=== PATIENT | female | born 1965 | race Caucasian/White ===

== ENCOUNTER 2016-05-05 19:52 | Emergency (ER) | payer BC ==
[~2016-05-05] VITALS: Ht 165.1 cm; Wt 103.9 kg
[~2016-05-05 19:52] MED LIST: LORTAB 5/500 501 TAB PO
[2016-05-05] MEDS ORDERED: PROTONIX 40MG T40 MG PO (20:01)
[2016-05-05] MEDS ORDERED: GABAPENTIN 600600 MG PO (20:02)
[2016-05-05] MEDS ORDERED: CELEXA10 MG PO (20:02)
[2016-05-05] MEDS ORDERED: QSYMIA PO (20:02)
[2016-05-05] MEDS ORDERED: LISINOPRIL40 MG PO (20:03)
[2016-05-05] MEDS ORDERED: FLONASE 50 MCG16 GM (20:22)
[2016-05-05] MEDS ORDERED: PREDNISONE 20MG20 MG PO (20:22)
[2016-05-05] MEDS ORDERED: ZITHROMAX Z PA250 MG PO (20:22)
--- NOTE | 2016-05-05 20:24 | Urgent Treatment Center Report ---
History of Present Issue Date/Time Seen by Provider 05/05/16 2016 Visit Reason Pt arrived:Walked Presenting Problem:C/O FEVERISH, CHILLS, N/V, HEADACHE X 1 DAY Location if Accident: Onset of symptoms date/time:/ or onset unknown for:MEDICAL HX UNKNOWN Have you (or family members/close friends) recently traveled outside the [place]? N If Yes, where/when: Have you had exposure to infectious disease within the past month? TB? Other? Specify: Patient states that she felt feverish, nausea vomiting and chills since yesterday that has got worse as the day went on today so she wanted to get checked ALLERGIES Coded Allergies: NO KNOWN ALLERGIES (05/03/15) Home Medications Reported Medications Pantoprazole Sodium (Protonix 40MG TAB) 40 MG PO BID CITALOPRAM HYDROBROMIDE (Citalopram HBr) 10 MG PO DAILY Gabapentin (Gabapentin 600MG) 600 MG PO DAILY PHENTERMINE/TOPIRAMATE (Qsymia 11.25 MG-69 MG Capsule) 1 CER PO DAILY Lisinopril (Lisinopril 40MG) 40 MG PO DAILY History Medical History General Angina: No DC: No Hypertension? Yes Hyperlipidemia? Yes CHF? No COPD? No Asthma? No GERD? Yes Hernia? No CVA? No Seizures? No Diabetes? No UTI? Yes Stones? No GB Disease: No Hepatitis? No Cataracts? No Glaucoma? No MRSA? No TB? No Anxiety? Yes Depression? Yes Cancer? No Immunization HX DT/Tetanus 02/17/10 Flu THIS YR Pneumonia 5-10 YRS Surgical Hx Previous Surgery?Y LT HAND SURGERY LAP X 5 HYSTERECTOMY X 2 TONSILS COLONOSCOPY Family History Family HX Diabetes No CAD No Hypertension Yes Hyperlipidemia Yes Cancer No TB No Social History Smoking Hx Smoker: Never Smoker Tobacco: No Alcohol Alcohol: No Review of Systems All Other Systems Reviewed and Negative ENT ear pain, nose discharge, nose congestion, throat pain, throat swelling. Respiratory cough Gastrointestinal nausea, vomiting Physical Exam Vital Signs Vital Signs Date Time Temp Pulse Resp B/P Pulse O2 O2 Flow FiO2 Ox Delivery Rate 05/05 1956 99.7 140 26 125/81 97 General Appearance appears ill, pale Ear, Nose, Throat sinus pain/drainage, nasal congestion, tonsillar exudate, tonsillar swelling Respiratory Status Yes: trachea midline, chest symmetrical, non tender chest. No: respiratory distress. Cardiovascular normal exam, no peripheral edema, no gallop, no JVD Neurologic alert, normal exam, oriented x 3 Medical Decision Making LABS/Meds/Orders Pt receiving controlled substance in ED? No Results/Orders Orders Procedure Date/time Status [facility] FLU A,B 05/05 2005 Active Departure Departure Time of Disposition 2019 Disposition DC Home or Self Care(routine) Clinical Impression Primary Impression: Upper respiratory infection Qualifiers: URI type: unspecified URI Qualified Code: J06.9 - Acute upper respiratory infection, unspecified Condition STABLE Referrals Brandon Givens MD (Family) Patient Instructions DI for Cough -- Adult, DI for Nasal Congestion Additional Instructions Over the counter Motrin or Tylenol as needed for fever Drink plenty fluids Warm salt water gargles as needed for throat irritation Follow up family doctor Discharge Counseling Counseled pt/family regarding diagnosis, test results, medications/RX, home care, follow up needs Prescriptions Current Visit Scripts Azithromycin (Zithromycin (Z-GRADY) 250MG Tab) 250 MG PO DAILY #6 TAB TAKE TWO (2) TABLETS ON DAY 1, THEN ONE (1) TABLET DAY #2 THRU #5 Prednisone (Prednisone 20MG) 20 MG PO BID #10 TAB Fluticasone Propionate (Flonase 50 Mcg Nasal [place]) 2 SPRAY NA DAILY #1 BOT at 202
[2016-05-05 20:34] VITALS: BP 125/81
[2016-05-08] MEDS ORDERED: AMBIEN 10MG TAB10 MG PO (15:47)
[2016-05-08] MEDS ORDERED: CELEXA 20MG TAB20 MG PO (15:47)
[2016-05-08] MEDS ORDERED: CELEBREX 200MG200 MG PO (15:47)
[2016-05-08] MEDS ORDERED: NEURONTIN100 MG PO (15:48)
[2016-05-08] MEDS ORDERED: ATORVASTATIN 4040 MG PO (15:48)
[2016-05-08] MEDS ORDERED: HYDROCHLOROTHIA1 TAB PO (15:48)
[2016-05-08] MEDS ORDERED: SINGULAIR 10 MG10 MG PO (15:49)
[2016-05-08] MEDS ORDERED: PREMARIN 0.3MG0.3 MG PO (15:49)
[2016-05-13] MEDS ORDERED: HYOSCYAMINE0.125 M1 SL (08:26)
[2016-05-13] MEDS ORDERED: XARELTO20 MG PO (08:30)
== END 2016-05-05 20:34 | disposition home or self-care (01) ==
LOC: UTC 19:52
DX: J06.9 Acute upper respiratory infection, unspecified (principal); F41.8 Other specified anxiety disorders; I10 Essential (primary) hypertension

== ENCOUNTER → 2016-05-30 | Outpatient (CLI) | payer BC ==
[~2016-05-30] MED LIST changes: +AMBIEN 10MG TAB10 MG PO; +ATORVASTATIN 4040 MG PO; +CELEBREX 200MG200 MG PO; +CELEXA 20MG TAB20 MG PO; +CELEXA10 MG PO; +FLONASE 50 MCG16 GM; +GABAPENTIN 600600 MG PO; +HYDROCHLOROTHIA1 TAB PO; +HYOSCYAMINE0.125 M1 SL; +LISINOPRIL40 MG PO; +NEURONTIN100 MG PO; +PREDNISONE 20MG20 MG PO; +PREMARIN 0.3MG0.3 MG PO; +PROTONIX 40MG T40 MG PO; +QSYMIA PO; +SINGULAIR 10 MG10 MG PO; +XARELTO20 MG PO; +ZITHROMAX Z PA250 MG PO
[2016-05-30 14:05] LABS: BUN 11 mg/dL (7-18)
[2016-05-30 14:12] LABS: GFR (ESTIMATED) 66 ML/MIN (59-)
== END ==
LOC: LAB 12:06
PROVIDERS: Family Medicine
DX: R93.8 Abnormal findings on diagnostic imaging of other specified body structures (principal)

== ENCOUNTER → 2016-05-31 | Outpatient (CLI) | payer BC ==
--- NOTE | 2016-06-03 06:11 | RADIOLOGY REPORT PS360 ---
CT CHEST W/ CONTRAST INDICATION: Follow-up abnormal CT scan of the lung bases ABNORMAL CXR ORDERING PHYSICIAN: Brandon Givens MD PATIENT AGE: 50 years COMPARISON: 05/11/2016 TECHNIQUE: Axial images are obtained with contrast. Sagittal and coronal reformatted images are reviewed as well. FINDINGS: Incidental note made of a 7 mm nodule the right lobe of the thyroid gland and 7 mm nodule of the left lobe of the thyroid gland medially. No mediastinal or hilar mass evident. Small left millimeters cystic area is present in the right upper lobe laterally. Minimal atelectatic or fibrotic changes are present involving the right upper lobe posteriorly. There is minimal peripheral fibrotic or atelectatic change in the right upper lobe laterally. Atelectatic changes are present in the right lower lobe in the right lung base. There is some associated nodularity in this region posteriorly and inferiorly. The consolidation/volume loss in the right lung base has shown some improvement. The nodularity however persist. This could be sequela from postinflammatory changes. One cannot exclude the possibility of a developing pulmonary nodule. Continued follow-up is recommended. The left lung is clear. No acute bony anomalies. IMPRESSION: 1. Persistent but slightly improved right lower lobe consolidation/atelectatic change. There is some persistent nodularity just along the distal aspect of this region of atelectasis. While this could be postinflammatory in nature, one cannot exclude the possibility of a pulmonary nodule. Continued follow-up is recommended in 4-6 weeks to evaluate for stability or resolution.
== END ==
LOC: RAD 09:00
DX: R92.8 Other abnormal and inconclusive findings on diagnostic imaging of breast (principal)
CPT/HCPCS: Q9967

== ENCOUNTER 2017-02-02 19:33 | Emergency (ER) | payer BC ==
[~2017-02-02] VITALS: Ht 165.1 cm; Wt 102.1 kg
--- OUTSIDE RECORDS SUMMARY | 2017-02-02 19:36 | External Medical Summary Rpt | CCD ---
Author Author [employer] Organization [employer] Address Unknown Phone Unavailable Purpose Continuity of Care Document - through 2016
--- OUTSIDE RECORDS SUMMARY | 2017-02-02 19:36 | External Medical Summary Rpt | CCD ---
Author Author , JAZZ MILTON Address Unknown Phone Immunization Name Date Rout CVX Reac Dose Comm Prov Is Faci e tion ent ider Refu lity Give sed n Infl 09-2 Intr 0.5 Hist D049 No D049 uenz 0-20 amus mL oric 01 01 a 17 cula al Quad r Info rmat W/Pr ion es - Sour ce Unsp ecif ied
--- OUTSIDE RECORDS SUMMARY | 2017-02-02 19:36 | External Medical Summary Rpt | CCD ---
Author Author , KARINE MILTON Address Unknown Phone [email or web address] Purpose Continuity of Care Document - through 2016
--- OUTSIDE RECORDS SUMMARY | 2017-02-02 19:36 | External Medical Summary Rpt ---
Author Author KARINE Dyer, KARINE Dyer Organization [employer] Address Unknown Phone Unavailable
--- OUTSIDE RECORDS SUMMARY | 2017-02-02 19:36 | External Medical Summary Rpt | CCD ---
Author Author , KARINE MILTON Address Unknown Phone [email or web address] Purpose Continuity of Care Document - through 2016
--- OUTSIDE RECORDS SUMMARY | 2017-02-02 19:36 | External Medical Summary Rpt ---
Author Author KARINE Dyer, KARINE Dyer Organization [employer] Address Unknown Phone Unavailable
--- NOTE | 2017-02-02 20:05 | Urgent Treatment Center Report ---
History of Present Issue Date/Time Seen by Provider 02/02/171999 Visit Reason Pt arrived:Walked Presenting Problem:PT C/O SORE THROAT, VOMITING, DIARRHEA, AND [place] ROSARIO Location if Accident: Onset of symptoms date/time:/ or onset unknown for:MEDICAL HX UNKNOWN Have you (or family members/close friends) recently traveled outside the [place]? N If Yes, where/when: Have you had exposure to infectious disease within the past month? TB? Other? Specify: Patient state that she has been having headache nausea, vomiting and diarrhea since this morning State that as the day went on she continued to feel worse. State that now her throat feels raw and hurts when she tries to swallow. State that she wanted to come in and get something for the nausea before she ended up dehydrated ALLERGIES Coded Allergies: No Known Allergies (07/09/16) Home Medications Active Scripts HYOSCYAMINE SULFATE (Anaspaz) 0.125 MG SL TID #30 TAB Ref 2 Prov: 05/13/16 Rivaroxaban (Xarelto) 20 MG PO DAILY #30 TAB Ref 3 Prov: 05/13/16 Fluticasone Propionate (Flonase 50 Mcg Nasal [place]) 2 SPRAY NA DAILY #1 BOT Prov: 05/05/16 Reported Medications Pantoprazole Sodium (Protonix 40MG TAB) 40 MG PO BID Zolpidem Tartrate (Ambien 10MG) 10 MG PO QHS Celecoxib (Celebrex 200MG) 200 MG PO DAILY CITALOPRAM HYDROBROMIDE (Citalopram HBr) 20 MG PO DAILY Atorvastatin Calcium (Atorvastatin 40MG) 40 MG PO QHS Gabapentin (Neurontin) 200 MG PO TID LISINOPRIL/HYDROCHLOROTHIAZIDE (Lisinopril-Hctz 10-12.5 MG Tab) 1 TAB PO DAILY Montelukast Sodium (Singulair 10MG) 10 MG PO DAILY History Medical History General CAD? No Angina: No AR: No Hypertension? Yes Hyperlipidemia? Yes CHF? No DVT? No PE? No COPD? No Asthma? No Anemia? No GERD? Yes Gastric ulcers? No GI Bleed? No Hernia? No Thyroid Problems? No Hypothyroidism? No CVA? No Seizures? No Diabetes? No Renal Insuffiency? No UTI? Yes Stones? No BPH? No GB Disease: No Nephritic Syndrome? No Asplenia? No Hepatitis? No Sickle Cell Disease? No Arthritis? No Migraines? No Cataracts? No Glaucoma? No MRSA? No HIV? No TB? No Anxiety? Yes Depression? Yes Cancer? No Additional hx: 1. Chronic back pain Immunization HX DT/Tetanus 02/17/10 Flu 2015- Flu Season Pneumonia Refuses Surgical Hx Previous Surgery?Y LT HAND SURGERY LAP X 5 HYSTERECTOMY X 2 TONSILS COLONOSCOPY Family History Family HX Diabetes No CAD No Hypertension Yes Hyperlipidemia Yes Cancer No TB No Social History Smoking Hx Smoker: Never Smoker Tobacco: No Packs/day N/A Alcohol Alcohol: No Review of Systems All Other Systems Reviewed and Negative Constitutional chills, fever ENT throat pain. Respiratory cough Gastrointestinal diarrhea, nausea, vomiting Physical Exam Vital Signs Vital Signs Date Time Temp Pulse Resp B/P Pulse O2 O2 Flow FiO2 Ox Delivery Rate 02/02 1945 97.9 92 18 150/88 96 General Appearance Patient appears ill, pale in color sitting on exam chair Ear, Nose, Throat THroat red, raw irritated drainage noted in back of throat Respiratory Status Yes: trachea midline, chest symmetrical, non tender chest. No: respiratory distress. Lung Sounds bilateral: normal breath sounds, lungs clear. Cardiovascular normal exam, regular rate/rhythm, no peripheral edema Neurologic alert, normal exam, oriented x 3 Medical Decision Making LABS/Meds/Orders Pt receiving controlled substance in ED? No Results/Orders Current Medication Orders Sig/Bruno Start time Last Medication Dose Route Stop Time Status Admin Sodium Chloride 500 ML .Q1H 02/02 2045 AC 02/02 IV 02/02 Sodium Chloride 10 ML PRN PRN 02/02 2045 AC IV 02/03 2041 Sodium Chloride 500 ML .STK-MED ONE 02/02 2031 DC IV Ondansetron HCl 8 MG ONCE ONE 02/02 2015 DC 02/02 IV 02/02 Ondansetron HCl 0 .STK-MED ONE 02/02 2005 DC .ROUTE Sodium Chloride 10 ML PRN PRN 02/03 2000 AC IV 02/03 1953 Sodium Chloride 500 ML .Q1H 02/03 2000 AC 02/02 IV 02/02 Sodium Chloride 10 ML PRN PRN 02/03 2000 AC IV 02/03 1954 Sodium Chloride 500 ML .STK-MED ONE 02/02 1957 DC IV Orders Procedure Date/time Status IV SALINE LOCK 02/02 1954 Active Progress [facility] Progress Notes 1 Time 2026 Comment Patient given 8mg of zofran and 500cc bolus of NS states that she is feeling a little better Ordered second bolus of 500cc [facility] Progress Notes 2 Comment After second 500 cc bolus patient sitting up in exam chair sipping on water, no vomiting since arrival patinet being dc'd home with family color improved lips moist patient state feels better Departure Departure Time of Disposition 2053 Disposition DC Home or Self Care(routine) Clinical Impression Primary Impression: Gastroenteritis Secondary Impressions: Acute pharyngitis Qualifiers: Pharyngitis/tonsillitis etiology: unspecified etiology Qualified Code: J02.9 - Acute pharyngitis, unspecified Condition STABLE Referrals Brandon Givens MD (Family) Patient Instructions Dehydration, DI for Dehydration -- Adult, DI for Nausea -- Adult, DI for Vomiting -- Adult, Sore Throat Additional Instructions * No sign of bacterial infection. Likely viral. Virus can take 7-14 days to run their course *Nasal saline and bulb syringe or nose sean to remove nasal drainage and help with nasal congestion. Hard to eat, drink, or sleep with nasal congestion so important to keep nose cleaned out. * Monitor Temp. Tylenol and/or Ibuprofen as needed. ER if fever is no less than 101 despite alternating Tylenol and Ibuprofen * Encourage fluids, water, Gatorade, powerade, pedialyte if /toddler/or child * Warm salt water gargles for throat irritation *Warm fluids *Sore throat lozenges *Sleep elevated *humidifier or vaporizer Lots of rest Increase fluids, water, Gatorade, powerade *Your throat swab was sent to lab for culture. Those results area typically sent to your primary care physician. Be sure to follow up in 2-3 days if no improvement so they can review those results and treat if necessary If you dont have primary care I recommend you get one, but in the mean time you will have to return to a walk in clinic Follow up IMMEDIATELY for new or worsening of symptoms OR no noticeable improvement over the next 48-72 hours. 911 immediately for any life threatening symptoms such as chest pain or difficulty breathing Discharge Counseling Counseled pt/family regarding diagnosis, test results, medications/RX, home care, follow up needs Prescriptions Current Visit Scripts Amoxicillin Trihydrate (Amoxicillin 500MG) 500 MG PO TID #30 CAP Ondansetron (Zofran 4MG Odt) 4 MG PO Q6HP PRN NAUSEA AND VOMITING #20 TAB at 0858
[2017-02-02] MEDS ORDERED: ZOFRAN ODT4 MG PO (20:57)
[2017-02-02] MEDS ORDERED: AMOXICILLIN 50500 MG PO (20:57)
[2017-02-02 20:59] VITALS: BP 150/88
== END 2017-02-02 20:59 | disposition home or self-care (01) ==
LOC: UTC 19:33
DX: A08.4 Viral intestinal infection, unspecified (principal); J02.9 Acute pharyngitis, unspecified; K21.9 Gastro-esophageal reflux disease without esophagitis; I10 Essential (primary) hypertension; E78.5 Hyperlipidemia, unspecified
CPT/HCPCS: J2405